=== PATIENT | male | born 1950 | race Hispanic/Latino ===

== ENCOUNTER 2017-09-11 07:07 | Observation (INO) | payer MEDICARE ==
[2017-09-08 11:16] LABS: BASOPHILS # (AUTO) 0.1 (0.0-0.1); BASOPHILS % 1.1 % (0.0-1.0); EOSINOPHILS # (AUTO) 0.2 (0.0-0.4); EOSINOPHILS % 2.4 % (0.0-6.0); HEMATOCRIT 43.9 % (38.2-49.6); HEMOGLOBIN 15.2 g/dL (14.0-18.0); LYMPHOCYTES # (AUTO) 2.6 (1.0-3.2); LYMPHOCYTES % 35.2 % (18.0-39.1); MEAN CORPUSCULAR HEMOGLOBIN 33.1 pg (28-32); MEAN CORPUSCULAR HGB CONC 34.6 g/dL (31-35); MEAN CORPUSCULAR VOLUME 95.6 fL (81-99); MONOCYTES # (AUTO) 0.6 (0.2-0.8); MONOCYTES % 7.7 % (4.4-11.3); NEUTROPHILS % 53.5 % (38.7-80.0); PLATELET COUNT 287 x10e3/uL (140-360); RED BLOOD COUNT 4.59 x10e6/uL (4.3-5.7); RED CELL DISTRIBUTION WIDTH 12.7 % (11.7-14.4)
--- NOTE | 2017-09-08 12:45 | Diagnostic Imaging Report ---
PROCEDURE: Frontal and lateral views of the chest. COMPARISON: None. INDICATIONS: PREOPERATIVE CHEST XRAY FOR LEFT KNEE SURGERY FINDINGS: Lines/tubes: None. Lungs: The lungs are well inflated and clear. There is no evidence of pneumonia or pulmonary edema. Pleura: There is no pleural effusion or pneumothorax. Heart and mediastinum: The heart and the mediastinum are normal. Bones: No acute bony abnormality. IMPRESSION: 1. No acute cardiopulmonary disease. Dictated by: Aryan Castro M.D. on 09/08/2017 at 12:50 Electronically approved by: Aryan Castro M.D. on 09/08/2017 at 12:50
[~2017-09-11] VITALS: Ht 165.1 cm; Wt 88.0 kg
[~2017-09-11 07:07] MED LIST: IBUPROFEN200 MG PO; PANTOPRAZOLE SO40 MG PO; ROPIVACAINE 246.25 MG, EPINEPHRINE HCL 1:1000 0.5 MG, CLONIDINE HCL 0.08 MG, KETOROLAC ... IV ONE
[2017-09-11] MEDS ORDERED: CELECOXIB 200 MG CAP ONE (07:29)
[2017-09-11] MEDS ORDERED: GABAPENTIN 300 MG CAP ONE (07:30)
[2017-09-11] MEDS ORDERED: CEFAZOLIN SOD 2 GM/D5W 50ML 50 ML IV ONE (07:30)
[2017-09-11] MEDS ORDERED: DEXAMETHASONE SOD PHOS 10 MG/1 ML VIAL ONE (07:30)
[2017-09-11] MEDS ORDERED: BACITRACIN 50,000 UNIT VIAL ONE (09:05)
[2017-09-11] MEDS ORDERED: TRANEXAMIC ACID 1,000 MG/10 ML ML ONE (09:05)
[2017-09-11] MEDS ORDERED: MUPIROCIN 2% OINT 22 GM TUBE ONE (09:05)
[2017-09-11] MEDS ORDERED: DIPHENHYDRAMINE HCL INJ 50 MG/ML VIAL IM/IV PRN (11:30)
[2017-09-11] MEDS ORDERED: DOCUSATE SODIUM 100 MG CAP PO PRN (11:30)
[2017-09-11] MEDS ORDERED: ONDANSETRON HCL INJ 2 MG/ML VIAL IV PRN (11:30)
[2017-09-11] MEDS ORDERED: PROMETHAZINE HCL (IM) 25 MG/ML VIAL IM PRN (11:30)
[2017-09-11] MEDS ORDERED: ZOLPIDEM TARTRATE 5 MG TAB PO PRN (11:30)
[2017-09-11] MEDS ORDERED: KETOROLAC TROMETHAMINE 30 MG/ML VIAL IV PRN (11:30)
[2017-09-11] MEDS: ACETAMINOPHEN 1000 MG/100 ML IV SCH ×2 (12:00→18:00)
[2017-09-11] MEDS ORDERED: FENTANYL CITRATE/PF 100MCG/2 ML INJ ONE ×2 (12:17→17:58)
--- NOTE | 2017-09-11 13:07 | Diagnostic Imaging Report ---
PROCEDURE: X-RAY LEFT KNEE, ONE OR TWO VIEWS COMPARISON: None. INDICATIONS:STATUS POST LEFT KNEE SURGERY FINDINGS: See conclusion. CONCLUSION: Status post total left knee replacement with surrounding soft tissue swelling, air and cheryle consistent with recent surgery. No acute fractures. Dictated by: Jordy Sun M.D. on 09/11/2017 at 13:13 Electronically approved by: Jordy Sun M.D. on 09/11/2017 at 13:13
--- NOTE | 2017-09-11 13:54 | Operative Report ---
DATE OF PROCEDURE: September 11, 2017 DIE CUT OPERATOR: Vinnie Serrano PA-C The patient was brought to the operating room for induction of anesthesia. Throughout this case, my PA's assistance was necessary for retraction of soft tissue and positioning of the extremity. This allows for efficient and technically successful execution of the operation and is considered medically necessary. PREOPERATIVE DIAGNOSIS: Osteoarthritis, left knee. POSTOPERATIVE DIAGNOSIS: Osteoarthritis, left knee. PROCEDURE: Left total knee arthroplasty. INDICATIONS: The patient is a 67-year-old gentleman with end-stage arthritis of his left knee. He has failed conservative management and would now like to proceed with definitive intervention. He had a similar situation on the right side, which responded nicely to a right total knee replacement. He would now like to have this done on the left side. We have reviewed the risks and benefits and recovery. He states he understands and wishes to proceed. DESCRIPTION OF PROCEDURE: The patient was brought to the operating room and placed under general anesthetic. He received prophylactic antibiotics, a regional block and tranexamic acid in the holding area. His left lower extremity was prepped and draped in a sterile manner. A preoperative time out was performed. The extremity was exsanguinated and a proximal tourniquet was inflated to 300 mmHg. An anterior approach with a medial parapatellar arthrotomy was performed. Fairly significant prepatellar bursitis was encountered. Soft tissue releases were performed to bring the knee up into flexion with the patella everted. Meniscal remnants and marginal osteophytes were removed. The cruciate ligaments were sacrificed. A [employer] Kaylynn II posterior stabilized knee system was used throughout the case. An extramedullary cutting guide was used to resect the proximal tibia. The tibial cut was referenced off of the least affected lateral compartment. The tibial baseplate was a size #6. The central fin punch was impacted and attention was directed towards the distal femur. An intramedullary cutting guide was used to resect the distal femur in 6 degrees of valgus and rotation referencing off of a combination of landmarks, including Whitesides line, the epicondylar axis and the posterior condyles. The femoral component was also a size #6. The anterior and posterior cuts were made. Trial reductions were performed. A 9 mm ultra congruent tibial insert provided appropriate soft tissue balancing and full extension and 90 degrees of flexion. The patella was resurfaced with a 32 mm x 7.5 mm patellar button. The thickness was checked before and after with calipers and was right at 23 mm. Patellar tracking was noted to be concentric. The trial implants were then all removed. A 100 mL premixed pericapsular injection was placed into the surrounding soft tissue. The knee was thoroughly irrigated with a shower-tip pulsatile lavage. The components were cemented into place using a single mix of Palacos cement preloaded with antibiotics. The wound was further irrigated while the cement cured. The arthrotomy was then closed with interrupted #1 Ethibond. The knee was put through flexion and extension to ensure a secure closure. The skin was closed with subcuticular Vicryl and cheryle. A sterile bandage was applied. The patient was extubated and transported to the recovery room in stable condition. Blood loss was minimal. All needle and sponge counts were correct. Job#: [id number] PR
[2017-09-11] MEDS ORDERED: CEFAZOLIN SOD 1 GM/D5W 50ML 50 ML IV SCH (14:00)
[2017-09-11 14:15] VITALS: BP 110/57
[2017-09-11] MEDS: SODIUM CHLORIDE 0.9% 1000ML 1,000 ML IV SCH ×2 (15:30→21:11)
[2017-09-11] MEDS: CELECOXIB 200 MG CAP PO SCH (16:11)
[2017-09-11 16:51] VITALS: BP 128/67
[2017-09-11] MEDS ORDERED: DEXAMETHASONE SOD PHOS INJ 4 MG/ML VIAL ONE (17:45)
[2017-09-11] MEDS ORDERED: LIDOCAINE HCL 2% LOCAL INJ 5 ML SDV VIAL INJ ONE (17:45)
[2017-09-11] MEDS ORDERED: SEVOFLURANE INHAL SOLN 250 ML PEN BTL ONE (17:45)
[2017-09-11] MEDS ORDERED: PROPOFOL IV EMULSION 10 MG/ML 20 ML VIAL ONE (17:45)
[2017-09-11] MEDS ORDERED: ONDANSETRON HCL INJ 2 MG/ML VIAL ONE (17:45)
[2017-09-11] MEDS ORDERED: EPINEPHRINE HCL INJ 1 MG/ML AMP ONE (17:54)
[2017-09-11] MEDS ORDERED: BUPIVACAINE HCL 0.5% INJ 30 ML VIAL INJ ONE (17:54)
[2017-09-11] MEDS ORDERED: MIDAZOLAM HCL 2 MG/2 ML VIAL ONE (17:58)
[2017-09-11] MEDS: CEFAZOLIN SOD 1 GM VIAL IV SCH (18:00)
[2017-09-11 20:00] VITALS: BP 136/63
[2017-09-11] MEDS: ASPIRIN 325 MG TAB PO SCH (21:43)
[2017-09-11 23:22] VITALS: BP 136/63
[2017-09-12] MEDS: ACETAMINOPHEN 1000 MG/100 ML IV SCH ×2 (00:28→05:47)
[2017-09-12] MEDS: CEFAZOLIN SOD 1 GM VIAL IV SCH ×2 (02:12→09:03)
[2017-09-12 04:00] VITALS: BP 119/58
[2017-09-12 05:23] LABS: HEMATOCRIT 34.7 % (38.2-49.6); HEMOGLOBIN 12.2 g/dL (14.0-18.0)
[2017-09-12] MEDS: SODIUM CHLORIDE 0.9% 1000ML 1,000 ML IV SCH (07:24)
[2017-09-12 08:35] VITALS: BP 98/57
[2017-09-12 08:58] VITALS: BP 98/57
[2017-09-12] MEDS: ASPIRIN 325 MG TAB PO SCH ×2 (09:03→16:51)
[2017-09-12] MEDS: CELECOXIB 200 MG CAP PO SCH ×2 (09:03→16:51)
[2017-09-12] MEDS ORDERED: HYDROCODONE/APAP 5MG-325MG TAB PO PRN (12:00)
[2017-09-12] MEDS ORDERED: HYDROCODONE/APAP 7.5MG-325MG 1 EA TAB PO PRN (12:00)
[2017-09-12] MEDS ORDERED: ACETAMINOPHEN 1000 MG/100 ML IV PRN (12:00)
[2017-09-12] MEDS ORDERED: ACETAMINOPHEN 650 MG SUPP PR PRN (12:00)
[2017-09-12 12:29] VITALS: BP 98/57
[2017-09-12] MEDS ORDERED: ASPIRIN325 MG PO (13:23)
[2017-09-12 16:24] VITALS: BP 119/58
== END 2017-09-12 16:54 | disposition home health service (06) ==
LOC: OR 07:07 → PACU V 11:27 → MED/SURG 13:47
PROVIDERS: ADMIT Specialist; ATTEND Specialist
DX: M17.12 Unilateral primary osteoarthritis, left knee (principal); Z96.651 Presence of right artificial knee joint; D64.9 Anemia, unspecified; K21.9 Gastro-esophageal reflux disease without esophagitis
CPT/HCPCS: 27447; 36415 ×2; 71046; 73560; 85014; 85018; 85025; 86850; 86900; 86920; 93005; 97110; 97116; 97161; 97530 ×2; C1713; G0378 ×2; G8978; G8979; J0171; J0690 ×2; J1100 ×2; J1885; J2001; J2250; J2405; J2795; J7030 ×2

== ENCOUNTER 2017-09-13 00:29 | Inpatient (IN) | payer MEDICARE ==
[2017-09-13] VITALS (10 sets, daily range): BP systolic 123–146; BP diastolic 62–71
[~2017-09-13] VITALS: Ht 162.6 cm; Wt 90.3 kg
[~2017-09-13 00:29] MED LIST changes: +ASPIRIN325 MG PO; -ROPIVACAINE 246.25 MG, EPINEPHRINE HCL 1:1000 0.5 MG, CLONIDINE HCL 0.08 MG, KETOROLAC ... IV ONE
[2017-09-13] MEDS ORDERED: CEFAZOLIN SOD IV ONE (09:30)
[2017-09-13] MEDS ORDERED: DEXTROSE IV ONE (09:30)
[2017-09-13] MEDS ORDERED: DEXTROSE 5%/0.45% SOD CHL 1,000 ML IV SCH (09:30)
[2017-09-13] MEDS ORDERED: CEFAZOLIN SOD 1 GM VIAL IV SCH (10:00)
--- NOTE | 2017-09-13 10:06 | History and Physical ---
CHIEF COMPLAINT: Left knee wound breakdown. HISTORY OF PRESENT ILLNESS: The patient is a 67-year-old gentleman who went home yesterday from the hospital. He had his left knee replaced on September 11. He went home on postoperative day 1. He states he got dizzy when he was at home. He fell forward and landed directly on his left knee. He was taken by EMS to [facility] Emergency Room. He was transferred back to [facility] with wound dehiscence. PAST MEDICAL HISTORY: He denies previous medical problems. PREVIOUS SURGERIES: Include a right knee replacement and left hand surgery. MEDICATIONS: Naprosyn and pantoprazole. ALLERGIES: NONE. SOCIAL HISTORY: He occasionally drinks. He does not smoke. He is and is retired. REVIEW OF SYSTEMS: Negative. PHYSICAL EXAMINATION: GENERAL: He is awake and alert and oriented. He is in no obvious distress. HEAD, EYES, EARS, NOSE, AND THROAT: Normocephalic, atraumatic. HEART: Regular rate and rhythm. LUNGS: Clear. ABDOMEN: Benign. EXTREMITIES: Left lower extremity, the left knee wound is nearly completely open. There is a large blood clot over the anterior aspect of the wound. NEURO: Distal motor and sensory exam is negative. LABORATORY STUDIES: X-ray showed no fractures. IMPRESSION: Traumatic wound dehiscence, left knee. PLAN: The patient will be admitted and he is already scheduled for secondary debridement and closure. The risks and benefits were explained to the patient. He states he understands and wishes to proceed. Job#: [id number]
[2017-09-13] MEDS ORDERED: MUPIROCIN 2% OINT 22 GM TUBE ONE (10:53)
[2017-09-13] MEDS ORDERED: BUPIVACAINE HCL 0.5% INJ 30 ML VIAL INJ ONE (10:53)
[2017-09-13] MEDS ORDERED: BACITRACIN 50,000 UNIT VIAL ONE (10:54)
[2017-09-13] MEDS ORDERED: DIPHENHYDRAMINE HCL INJ 50 MG/ML VIAL IM/IV PRN (13:30)
[2017-09-13] MEDS ORDERED: DOCUSATE SODIUM 100 MG CAP PO PRN (13:30)
[2017-09-13] MEDS ORDERED: HYDROCODONE/APAP 5MG-325MG TAB PO PRN (13:30)
[2017-09-13] MEDS ORDERED: ONDANSETRON HCL INJ 2 MG/ML VIAL IV PRN (13:30)
[2017-09-13] MEDS ORDERED: ACETAMINOPHEN 650 MG SUPP PR PRN (13:30)
[2017-09-13] MEDS ORDERED: ZOLPIDEM TARTRATE 5 MG TAB PO PRN (13:30)
[2017-09-13] MEDS ORDERED: KETOROLAC TROMETHAMINE 30 MG/ML VIAL IV PRN (13:30)
[2017-09-13] MEDS ORDERED: HYDROCODONE/APAP 7.5MG-325MG 1 EA TAB PO PRN (13:30)
[2017-09-13] MEDS ORDERED: PROMETHAZINE HCL (IM) 25 MG/ML VIAL INJ PRN (13:30)
[2017-09-13] MEDS ORDERED: CEFAZOLIN SOD 1 GM/D5W 50ML 50 ML IV SCH (14:00)
[2017-09-13] MEDS: SODIUM CHLORIDE 0.9% 1000ML 1,000 ML IV SCH ×2 (14:36→23:20)
[2017-09-13] MEDS: CEFAZOLIN SOD 1 GM VIAL IV SCH (14:40)
[2017-09-13] MEDS ORDERED: MIDAZOLAM HCL 2 MG/2 ML VIAL ONE (16:08)
[2017-09-13] MEDS ORDERED: FENTANYL CITRATE/PF 100MCG/2 ML INJ ONE (16:08)
--- NOTE | 2017-09-13 16:19 | Consultation ---
DATE OF CONSULTATION: September 13, 2017 REASON FOR CONSULTATION: Left knee wound infection. HISTORY OF PRESENT ILLNESS: This is a 67-year-old gentleman who went home after left knee replacement on September 11. He came back with dehiscence of the wound. Apparently, the patient got dizzy. He was at home. He fell forward and landed directly on his left knee. He was taken to the emergency room at [facility] and transferred back to [facility] for wound dehiscence. Patient was seen immediately postop. PAST MEDICAL HISTORY: As above. PAST SURGICAL HISTORY: As above. ALLERGIES: NKA. SOCIAL HISTORY: There is no smoking, drug abuse or alcohol abuse. FAMILY HISTORY: Unremarkable. PHYSICAL EXAMINATION GENERAL: He is currently alert and oriented, does not seem to be in acute distress. VITALS: Stable, currently afebrile. HEENT: He is not icteric. NECK: Supple CHEST: Clear. HEART: S1 and S2, no murmur. ABDOMEN: Soft. Bowel sounds present. No tenderness. EXTREMITIES: No edema. Patient was taken for surgery immediately. Events noted. IMPRESSION: Dehiscence of the wound after trauma immediately after surgery. The patient is currently at risk for infection since he just had surgery, and I would recommend to put him on vancomycin 1 gram q.12 for 2 weeks. Will get a PICC line. Weekly CBC and weekly chem panel. We will see how he is going to do clinically. Cultures were sent. Hopefully, it is all superficial, and we have it in time. This was discussed with the patient. Will discuss with the family. Job#: [id number]
[2017-09-13] MEDS ORDERED: CELECOXIB 100 MG CAP PO SCH (17:00)
[2017-09-13] MEDS: CELECOXIB 200 MG CAP PO SCH (17:12)
[2017-09-13] MEDS: VANCOMYCIN 1GM/NS 250 ML 250 ML IV SCH (17:12)
[2017-09-13] MEDS: ASPIRIN 325 MG TAB PO SCH (17:12)
[2017-09-13] MEDS ORDERED: DEXAMETHASONE SOD PHOS INJ 4 MG/ML VIAL ONE (18:25)
[2017-09-13] MEDS ORDERED: PROPOFOL IV EMULSION 10 MG/ML 20 ML VIAL ONE (18:25)
[2017-09-13] MEDS ORDERED: SEVOFLURANE INHAL SOLN 250 ML PEN BTL ONE (18:25)
[2017-09-13] MEDS ORDERED: LIDOCAINE HCL 2% LOCAL INJ 5 ML SDV VIAL INJ ONE (18:25)
[2017-09-13] MEDS ORDERED: ONDANSETRON HCL INJ 2 MG/ML VIAL ONE (18:25)
[2017-09-13] MEDS: ACETAMINOPHEN 1000 MG/100 ML IV SCH (18:42)
[2017-09-14] VITALS (8 sets, daily range): BP systolic 122–142; BP diastolic 60–71
[2017-09-14] MEDS: ACETAMINOPHEN 1000 MG/100 ML IV SCH ×3 (00:46→12:43)
[2017-09-14] MEDS: CEFAZOLIN SOD 1 GM VIAL IV SCH ×2 (01:00→09:08)
[2017-09-14] MEDS: VANCOMYCIN 1GM/NS 250 ML 250 ML IV SCH ×2 (04:36→16:04)
[2017-09-14 04:37] LABS: HEMATOCRIT 29.6 % (38.2-49.6); HEMOGLOBIN 10.5 g/dL (14.0-18.0)
[2017-09-14] MEDS: CELECOXIB 200 MG CAP PO SCH ×2 (09:08→17:30)
[2017-09-14] MEDS: ASPIRIN 325 MG TAB PO SCH ×2 (09:08→17:30)
[2017-09-14 12:15] LABS: ANION GAP 13.5 mmol/L (8-16); BLOOD UREA NITROGEN 17 mg/dL (7-26); BUN/CREATININE RATIO 21 (6-25); CALCIUM 8.4 mg/dL (8.4-10.2); CARBON DIOXIDE 25 mmol/L (22-29); CHLORIDE 108 mmol/L (98-107); CREATININE, SERUM 0.81 mg/dL (0.72-1.25); EST GLOMERULAR FILTRATION RATE > 60 ML/MIN (60-); GLUCOSE 94 mg/dL (74-118); POTASSIUM 4.5 mmol/L (3.5-5.1); SODIUM 142 mmol/L (136-145)
[2017-09-14] MEDS ORDERED: ACETAMINOPHEN 1000 MG/100 ML IV PRN (13:30)
--- NOTE | 2017-09-14 14:26 | Operative Report ---
DATE OF PROCEDURE: September 13, 2017 PREOPERATIVE DIAGNOSIS: Wound breakdown, left knee. POSTOPERATIVE DIAGNOSIS: Wound breakdown, left knee. PROCEDURE: Left knee irrigation and debridement with secondary wound closure. INDICATIONS: The patient is a 67-year-old gentleman who went home yesterday after a left total knee replacement. He had gone home on postoperative day 1. He was doing fine at home until late in the evening. He had gotten up with his walker and felt dizzy. He fell forward, landing directly on his left knee. The wound broke open, and he went by EMS to [facility]. I was contacted at roughly 2 o'clock in the morning. Transfer was arranged back to [facility] where we plan on an irrigation and debridement. The risks and benefits of infection at a later date were explained. He states he understands and wishes to proceed. DESCRIPTION OF PROCEDURE: The patient was brought into the operating room and placed under general anesthetic. His left lower extremity was prepped and draped in a sterile manner. A preoperative time out was performed. No tourniquet was used. All previous Ethibond stitches and Vicryl stitches were removed. The wound was inspected. It was noted to have near complete breakdown of the arthrotomy. The components were stable. The wound was thoroughly irrigated with a shower-tip pulsatile lavage. Six liters of sterile saline was utilized. The surfaces of the prosthesis were scrubbed with Betadine. All hematoma was removed as much as possible. The wound was further irrigated with sterile saline. The arthrotomy was then reclosed with interrupted #1 Ethibond. The skin was closed with multiple interrupted 2-0 Prolene stitches. A sterile bandage and a knee immobilizer were applied. The patient was extubated and transported to the recovery room in stable condition. There was no blood loss other than the hematoma. All needle and sponge counts were correct. Job#: [id number]
--- NOTE | 2017-09-14 15:45 | Diagnostic Imaging Report ---
PROCEDURE: CHEST XRAY LINE PLACEMENT COMPARISON: Patients [facility], DX, CHEST 2 VIEWS, 09/08/2017, 10:52. INDICATIONS: PICC placement FINDINGS: Medical devices: Right PICC line terminates in the SVC. No pneumothorax. LUNGS: No consolidations or edema. The vascular markings are normal. PLEURA: No effusions or pneumothorax. HEART \T\ MEDIASTINUM: The heart is within normal size-limits. BONES \T\ SOFT TISSUES: No acute findings. CONCLUSION: PICC line as described above. No pneumothorax. No acute thoracic abnormality. Dictated by: Ken Samuels M.D. on 09/14/2017 at 15:51 Electronically approved by: Ken Samuels M.D. on 09/14/2017 at 15:51
[2017-09-15] VITALS: BP 157/72
[2017-09-15 04:00] VITALS: BP 152/75
[2017-09-15 04:53] LABS: HEMATOCRIT 29.2 % (38.2-49.6); HEMOGLOBIN 10.4 g/dL (14.0-18.0)
[2017-09-15] MEDS: VANCOMYCIN 1GM/NS 250 ML 250 ML IV SCH ×2 (05:00→16:45)
[2017-09-15 08:04] VITALS: BP 138/73
[2017-09-15 11:30] VITALS: BP 138/73
[2017-09-15] MEDS: ASPIRIN 325 MG TAB PO SCH ×2 (11:30→16:45)
[2017-09-15] MEDS: CELECOXIB 200 MG CAP PO SCH ×2 (11:30→16:45)
[2017-09-15 12:00] VITALS: BP 147/71
== END 2017-09-15 18:42 | disposition home health service (06) | DRG 909 ==
LOC: MED/SURG 02:02
PROVIDERS: ADMIT Specialist; ATTEND Specialist
PROC: 0JDP0ZZ Extraction of Left Lower Leg Subcutaneous Tissue and Fascia, Open Approach (ICD-10-PCS; principal; 2017-09-14)
PROC: 0YQG0ZZ Repair Left Knee Region, Open Approach (ICD-10-PCS; 2017-09-14)
PROC: 02HV33Z Insertion of Infusion Device into Superior Vena Cava, Percutaneous Approach (ICD-10-PCS; 2017-09-14)
DX: T81.32XA Disruption of internal operation (surgical) wound, not elsewhere classified, initial encounter (principal); Z96.653 Presence of artificial knee joint, bilateral; K21.9 Gastro-esophageal reflux disease without esophagitis; W18.30XA Fall on same level, unspecified, initial encounter
CPT/HCPCS: 36415; 36569; 71045; 80048; 80202; 85014; 85018; 87071; 87075; 87205; J0690; J1100; J1885; J2001; J2250; J2405; J3370; J7030